=== PATIENT | female | born 1955 | race Caucasian/White ===

== ENCOUNTER → 2016-12-31 | Outpatient (CLI) | payer OTHER ==
--- NOTE | 2016-12-31 14:10 | DIAGNOSTIC IMAGING REPORT ---
SOFT TISS HEAD/NECK-THYROID CLINICAL HISTORY: 61 years-old Female with Z83.49 Family history of thyroid [id number] Enlarged thyroidUL. COMPARISON: None available TECHNIQUE: Multiple real time sonographic images of the thyroid were obtained accessing kenney scale appearance and color doppler flow. FINDINGS: MEASUREMENTS: Right lobe: 3.7 x 1.2 x 1.6 cm Left lobe: 4.3 x 0.9 x 1.7 cm Isthmus: 0.13 cm PARENCHYMA: The thyroid parenchymal echotexture is homogeneous. NODULES: There are multiple nodules present within the right lobe of the thyroid. A large circumscribed ovoid wider than tall hypoechoic spongiform-appearing nodule containing nonshadowing echogenic foci suggesting colloid is seen in the superior aspect of the right thyroid measuring 1.6 x 0.8 x 1.0 cm. A hypoechoic circumscribed nodule of the mid right thyroid measures 0.8 x 0.3 x 0.6 cm. A third nodule of the right thyroid demonstrates irregular margins and is hypoechoic, wider than tall measuring 0.7 x 0.6 x 0.5 cm internal echogenic nonshadowing foci within this lesion suggest microcalcifications rather than colloid. There is internal flow within this nodule. 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 IMPRESSION: 1. Multinodular thyroid with largest nodule in the superior aspect of the right thyroid lobe demonstrating nonshadowing echogenic internal foci suggesting colloid rather than microcalcifications measuring up to 1.6 cm. This could be further evaluated with ultrasound-guided FNA. 2. Irregular hypoechoic nodule within the lower pole right thyroid appears to have internal microcalcifications measuring up to 0.7 cm. This lesion should be noted on follow-up exam and according to the [place] [employer], biopsy would be recommended at 1 cm in size. 3. No suspicious left thyroid nodules identified. The above report was generated using voice recognition software. It may contain grammatical, syntax or spelling errors. Electronically signed by: Aleksander Floyd M.D. 12/31/2016 2:08 PM Dictated Date/Time: 12/31/2016 2:02 PM
== END | disposition home or self-care (01) ==
LOC: C.ULTR 13:29
PROVIDERS: ATTEND Nurse Practitioner Adult Health
DX: Z83.49 Family history of other endocrine, nutritional and metabolic diseases (principal); E07.89 Other specified disorders of thyroid; E01.0 Iodine-deficiency related diffuse (endemic) goiter

== ENCOUNTER → 2017-01-06 | Outpatient (CLI) | payer OTHER ==
[2017-01-06 09:38] LABS: BASO % 0.5 %; BASO ABS # 0.02 K/uL (0-0.2); COMPLETE YES; EOS % 3.1 %; HEMATOCRIT 41.2 % (37-47); IG% 0.2 %; LYMPH % 42.3 %; LYMPH ABS # 1.77 K/uL (1.2-3.4); MEAN CELL VOLUME 94.1 fL (80-100); MEAN CORPUSCULAR HEMOGLOBIN 30.6 pg (25-34); MEAN CORPUSCULAR HGB CONC 32.5 g/dl (32-36); MEAN PLATELET VOLUME 9.6 fL (7.4-10.4); MONO % 6.7 %; NEUT % 47.2 %; PLATELET COUNT 250 K/uL (130-400); RED BLOOD COUNT 4.38 M/uL (4.2-5.4); WHITE BLOOD COUNT 4.18 K/uL (4.8-10.8)
[2017-01-06 09:52] LABS: BLOOD UREA NITROGEN 14 mg/dl (7-18); BUN/CREATININE RATIO 21.2 (10-20); CALCIUM 8.4 mg/dl (8.5-10.1); CARBON DIOXIDE 31 mmol/L (21-32); CHLORIDE 107 mmol/L (98-107); CREATININE 0.66 mg/dl (0.60-1.20); GLUCOSE 87 mg/dl (70-99); POTASSIUM 4.2 mmol/L (3.5-5.1); SODIUM 141 mmol/L (136-145)
[2017-01-06 10:03] LABS: CHOLESTEROL 174 mg/dl (0-200); CHOLESTEROL/HDL RATIO 3.3; HDL CHOLESTEROL 53 mg/dl; LDL CHOLESTEROL CALCULATED 93 mg/dl; TRIGLYCERIDES 139 mg/dl (0-150); VERY LOW DENSITY LIPOPROT CALC 28 mg/dl
== END | disposition home or self-care (01) ==
LOC: C.LAB1850 06:58
PROVIDERS: ATTEND Nurse Practitioner Adult Health
DX: R53.83 Other fatigue (principal); Z13.220 Encounter for screening for lipoid disorders

== ENCOUNTER → 2017-01-12 | Outpatient (CLI) | payer OTHER ==
--- NOTE | 2017-01-12 11:19 | Discharge Instructions ---
Discharge Instructions Procedure Procedure Date: Jan 12, 2017. Reason for visit: Thyroid Nodule. Discharge Discharge Date: Jan 12, 2017. Discharge Diagnosis: s/p thyroid nodule FNA Instructions Activity Recommendations: No limitations Return to School/Work: no limitations Recommended Home Diet: No Limitations Provider Instructions: ACTIVITY RECOMMENDATIONS: * Rest today. * Resume regular activity in one day. MEDICATIONS: * May take Tylenol or Ibuprofen as needed for pain. DIET: * Resume previous diet. SPECIAL CARE INSTRUCTIONS: Call your doctor if: * Temperature above 101 degrees F. * Pain not relieved by pain medicine ordered. * Increased drainage or redness from incision. * Notify your doctor with any questions or concerns. Call your doctor or go to the nearest Emergency Department if you experience: * Increased chest pain or shortness of breath. FOLLOW UP VISIT: Follow-up with Referring Physician as scheduled. Geni Fajardo Recommendations: Call your doctor if: * Temperature above 101 degrees * Pain not relieved by pain medicine ordered * There is increased drainage or redness from any incision * You have any unanswered questions or concerns. Your Doctors Instructions noted above were prepared by provider Edwin Avalos. Patient Signature Section: Patient Instructions Signature Page Amrita Rios Patient (or Guardian) Signature/Date: I have read and understand the instructions given to me by my caregivers. Caregiver/RN/Doctor Signature/Date: The above-named patient and/or guardian has received patient instructions on this date. + Original Patient Signature Page (only) stays with chart. Please make copy for patient.
--- NOTE | 2017-01-12 11:51 | DIAGNOSTIC IMAGING REPORT ---
ULTRASOUND GUIDED FINE NEEDLE ASPIRATION OF RIGHT LOBE THYROID NODULE CLINICAL HISTORY: Thyroid nodule. COMPARISON STUDY: Thyroid ultrasound December 31, 2016. PROCEDURE: The procedure, risks and benefits were discussed with the patient. The patient agreed to the procedure and informed written consent was obtained. The procedure was performed by Dr. Avalos. The 1.6 cm right lobe thyroid nodule shown on prior ultrasound was targeted. Skin of the neck was prepped and draped in sterile fashion and local anesthesia was achieved with 1% lidocaine. Under direct ultrasound guidance, 3 25-gauge fine needle aspirations of the 1.6 cm right lobe thyroid nodule were performed. Samples were deemed preliminarily adequate by pathology. The patient tolerated the procedure well and no immediate complications were evident. IMPRESSION: Ultrasound guided fine needle aspiration of 1.6 cm right lobe thyroid nodule. Electronically signed by: Edwin Avalos M.D. 01/12/2017 11:50 AM Dictated Date/Time: 01/12/2017 11:48 AM
== END | disposition home or self-care (01) ==
LOC: C.ULTR 10:43
PROVIDERS: ATTEND Nurse Practitioner Adult Health
DX: E04.2 Nontoxic multinodular goiter (principal)

== ENCOUNTER → 2017-02-24 | Outpatient (CLI) | payer OTHER ==
[2017-02-24 10:04] LABS: CHOLESTEROL/HDL RATIO 3.2; THYROID STIMULATING HORMONE 3.63 uIu/ml (0.300-4.500)
== END | disposition home or self-care (01) ==
LOC: C.LAB1850 07:16
PROVIDERS: ATTEND Nurse Practitioner Adult Health
DX: Z00.00 Encounter for general adult medical examination without abnormal findings (principal); R93.8 Abnormal findings on diagnostic imaging of other specified body structures; E04.2 Nontoxic multinodular goiter; R94.6 Abnormal results of thyroid function studies; Z13.220 Encounter for screening for lipoid disorders

== ENCOUNTER → 2017-04-06 | Outpatient (CLI) | payer OTHER ==
--- NOTE | 2017-04-07 07:43 | MAMMOGRAPHY REPORT ---
UNILATERAL RIGHT DIGITAL DIAGNOSTIC MAMMOGRAM AND TARGETED BILATERAL ULTRASOUND: 04/06/2017 CLINICAL HISTORY: 61-year-old woman called back from screening mammography for new right breast micro calcifications and possible distortion. The patient reports her right nipple has always been differe nt in appearance compared to the left after she nursed her children 25 years ago. She reports more r ecently an asymmetric area of puckering in the inferior right breast comparing to the left. TECHNIQUE: Spot magnification right CC and ML views were obtained. COMPARISON: Comparison is made to exams dated: 03/24/2017 mammogram - [facility], 07/27/2012 mammogram, 07/12/2012 mammogram, and 09/18/2009 mammogram. BREAST COMPOSITION: The tissue of the right breast is heterogeneously dense, which may obscure small masses. FINDINGS: The spot magnification views of the right breast demonstrate new segmental pleomorphic massiel rocalcifications throughout the right upper outer quadrant, extending over approximately 7.0 x 5.5 x 2.9 cm. These were not present on the prior 2012 mammograms. There are suspicious for DCIS and defi nitive characterization with a stereotactic biopsy is recommended. The possible architectural distortion in the right breast is most prominent in the retroareolar aspec t of the breast and therefore additional evaluation with ultrasound was performed. Targeted ultrasou nd performed in the right breast with particular attention to the retroareolar breast demonstrates il l-defined hypoechoic shadowing in the retroareolar breast. Possible calcifications are seen in the 1 0:00 axis, 6 cm from the nipple, likely corresponding to the pleomorphic microcalcifications seen tremayne mographically. No focal discrete targetable area to correlate with the distortion is seen on ultraso und, therefore would prefer tomosynthesis guided biopsy in the retroareolar or slightly medial right breast for definitive characterization. The contralateral left breast was also evaluated with ultrasound for comparison purposes and there ar e less hypoechoic areas of shadowing. The only questionable area of possible distortion is seen in t he 3:00 periareolar left breast. We will await pathology results from the right breast biopsies and may consider breast MRI to assess the left breast further. IMPRESSION: ACR BI-RADS CATEGORY 5: HIGHLY SUGGESTIVE OF MALIGNANCY, TARGETED ULTRASOUND ACR BI-RADS CATEGORY 5: HIGHLY SUGGESTIVE OF MALIGNANCY 1. Right breast stereotactic guided biopsy x 2 is recommended. The first stereotactic biopsy should be performed of the segmental pleomorphic microcalcifications, with attempt at biopsying the calcifi cations in the most lateral and superior position. The second stereotactic biopsy should be performe d with tomosynthesis guidance to target the distortion in the retroareolar aspect of the breast. The distortion appears to extend slightly medial and slightly inferior to the nipple and an attempt shou ld be made to target the most medial and inferior aspect of distortion to properly assess extent of d isease. 2. Ultrasound of the right axilla was not performed during this appointment and should be performed either before or after the right breast stereotactic biopsies. These results and recommendations were discussed with the patient at the time of the exam. She tenta tively scheduled the right breast biopsies prior to leaving our department. Approximately 10% of breast cancers are not detected with mammography. A negative mammographic report should not delay biopsy if a clinically suggestive mass is present. Alycia Plasencia M.D. ay/:04/06/2017 15:12:19 Center Manager: Ana Cristina SOLIS(R)(M), [facility] letter sent: Abnormal 4/5 BI-RADS Code: ACR BI-RADS Category 5: Highly Suggestive Of Malignancy Ultrasound BI-RADS: ACR BI-RAD S Category 5: Highly Suggestive Of Malignancy
== END | disposition home or self-care (01) ==
LOC: C.MAMM 14:13
PROVIDERS: ATTEND Nurse Practitioner Adult Health
DX: R92.0 Mammographic microcalcification found on diagnostic imaging of breast (principal); N64.9 Disorder of breast, unspecified

== ENCOUNTER → 2017-04-13 | Outpatient (CLI) | payer OTHER ==
--- NOTE | 2017-04-13 09:53 | Discharge Instructions ---
Discharge Instructions Procedure Procedure Date: Apr 13, 2017. Reason for visit: Bx Ruq Calc; Distortion Retroareolar Breast. Discharge Discharge Date: Apr 13, 2017. Discharge Diagnosis: status post breast biopsies Instructions Activity Recommendations: Additional Limitations (see below) Return to School/Work: no limitations Recommended Home Diet: No Limitations Provider Instructions: ACTIVITY RECOMMENDATIONS: * No lifting, pushing, pulling or exercising the affected side for three days. RETURN TO SCHOOL/WORK: * You may return to work/school after the procedure, but do not perform any strenuous activities for 24 to 48 hours. MEDICATIONS: * Tylenol (two 325 mg) every four to six hours if needed for mild pain (if not allergic to Tylenol). DIET: * Resume previous diet. SPECIAL CARE INSTRUCTIONS: * Keep biopsy site dry for 24 hours. May shower after 24 hours, but do not soak (bathe) incision. * May remove Tegaderm (plastic patch) tomorrow AFTER showering. * Leave the steri-strips on for one week. Allow the steri-strips to fall off by themselves. If not off after one week, you may remove them. You may place a Bandaid crosswise over the strips, if desired. * Apply ice 10 minutes on and 10 minutes off as needed. * Wear a bra at bedtime to sleep more comfortably for 2-3 days. * Your referring physician should have the results after approximately 5 to 7 business days. * Call for unusual bleeding, fever, drainage, etc or if you have any questions call during normal business hours or after hours call Dr Galindo, [phone]. FOLLOW UP VISIT: Follow-up with Referring Physician as scheduled. Geni Fajardo Recommendations: Call your doctor if: * Temperature above 101 degrees * Pain not relieved by pain medicine ordered * There is increased drainage or redness from any incision * You have any unanswered questions or concerns. Your Doctors Instructions noted above were prepared by provider Cesilia Galindo. Patient Signature Section: Patient Instructions Signature Page Amrita Rios Patient (or Guardian) Signature/Date: I have read and understand the instructions given to me by my caregivers. Caregiver/RN/Doctor Signature/Date: The above-named patient and/or guardian has received patient instructions on this date. + Original Patient Signature Page (only) stays with chart. Please make copy for patient.
--- NOTE | 2017-04-13 14:45 | MAMMOGRAPHY REPORT ---
STEREOTACTIC GUIDED BIOPSY RIGHT BREAST: 04/13/2017 CLINICAL HISTORY: Suspicious architectural distortion in the right retroareolar breast. PATIENT CONSENT: The procedure, risks, benefits, and alternatives of stereotactic biopsy with clip pl acement were discussed with the patient, and verbal and written consent was obtained. A timeout was performed immediately prior to the procedure. PROCEDURE DESCRIPTION: With tomosynthesis stereotactic guidance, aseptic technique, and lidocaine as a local anesthetic (1% lidocaine to anesthetize the skin and 1% lidocaine with epinephrine to anesthe tize the deeper tissues), the architectural distortion in the right retroareolar breast was sampled m ultiple times with a 9-gauge vacuum-assisted biopsy needle ([employer]). The path of approach was c raniocaudal. A specimen radiograph was performed which showed no associated calcifications within th e samples. A metallic marker clip was placed at the biopsy site. This was confirmed on postprocedure mammograms. Direct pressure was applied at the biopsy site and hemostasis was readily achieved. Th e patient tolerated the procedure without complication. She was given wound care instructions. COMPARISON: Comparison is made to exams dated: 04/06/2017 mammogram, 04/06/2017 ultrasound, 03/24/20 17 mammogram - [facility], 07/27/2012 mammogram, 07/12/2012 mammogram, and 09/18/2009 m ammogram. IMPRESSION: STEREOTACTIC GUIDED BIOPSY Tomosynthesis stereotactic guided biopsy of architectural distortion in the right retroareolar breast , with clip placement. The patient will receive pathology results from her referring provider. Cesilia Galindo M.D. ah/:04/13/2017 10:43:46 Supervisor Telephone Answering Service: Alicia SOLIS(Neeta)(M), [facility]
--- NOTE | 2017-04-13 14:45 | MAMMOGRAPHY REPORT ---
STEREOTACTIC GUIDED BIOPSY RIGHT BREAST: 04/13/2017 CLINICAL HISTORY: Highly suspicious calcifications in the right upper outer quadrant and associated a rchitectural distortion in the right retroareolar breast. PATIENT CONSENT: The procedure, risks, benefits, and alternatives of stereotactic biopsy with clip pl acement were discussed with the patient, and verbal and written consent was obtained. A timeout was performed immediately prior to the procedure. PROCEDURE DESCRIPTION: With stereotactic guidance, aseptic technique, and lidocaine as a local anesth etic (1% lidocaine to anesthetize the skin and 1% lidocaine with epinephrine to anesthetize the deepe r tissues), the suspicious calcifications in the right upper outer quadrant were sampled multiple belén es with a 9-gauge vacuum-assisted biopsy needle ([employer] The path of approach was lateral. Th e specimen radiograph demonstrates calcifications to be present in the samples. A metallic marker cl ip (dumbell-shaped) was placed at the biopsy site. This was confirmed on postprocedure mammograms. Direct pressure was applied at the biopsy site and hemostasis was readily achieved. The patient tole rated the procedure without complication. She was given wound care instructions. COMPARISON: Comparison is made to exams dated: 04/13/2017 stereotactic biopsy, 04/06/2017 mammogram, 04/06/2017 ultrasound, and 03/24/2017 mammogram - [facility]. IMPRESSION: STEREOTACTIC GUIDED BIOPSY Stereotactic biopsy of indeterminate calcifications in the right upper outer quadrant, with clip plac ement. The patient will receive pathology results from her referring provider. Cesilia Galindo M.D. ah/:04/13/2017 10:41:31 Reservation Agent: Alicia BAIRD)(M), [facility]
--- NOTE | 2017-04-13 14:46 | MAMMOGRAPHY REPORT ---
ULTRASOUND OF RIGHT AXILLA: 04/13/2017 CLINICAL HISTORY: Highly suspicious findings seen within the right breast during recent diagnostic wo rkup, for which axillary ultrasound was recommended. COMPARISON: Comparison is made to exams dated: 04/13/2017 stereotactic biopsy, 04/13/2017 stereotact ic biopsy, 04/06/2017 mammogram, 04/06/2017 ultrasound, 03/24/2017 mammogram - [facility], and 07/27/2012 mammogram. TECHNIQUE: Targeted ultrasound of the right axilla was performed. FINDINGS: Targeted ultrasound was performed of the right axilla. There are multiple morphologically normal right axillary lymph nodes, which are normal oval in shape and contain normal echogenic fatty rosana and the cortices are of normal thickness. No morphologically abnormal right axillary lymph nod es are seen. IMPRESSION: ACR BI-RADS CATEGORY 2: BENIGN No evidence of right axillary adenopathy. The patient was verbally notified of the results. Cesilia Galindo M.D. ah/:04/13/2017 10:18:20 Director Game: Alicia SOLIS(Neeta)(M), [facility] BI-RADS Code: ACR BI-RADS Category 2: Benign
--- NOTE | 2017-04-13 14:47 | MAMMOGRAPHY REPORT ---
UNILATERAL RIGHT DIGITAL DIAGNOSTIC MAMMOGRAM TOMOSYNTHESIS: 04/13/2017 CLINICAL HISTORY: Status post stereotactic biopsy of the right breast 2. TECHNIQUE: Breast tomosynthesis in addition to standard 2D mammography was performed. Postprocedura l right CC and ML tomosynthesis images and right XCCL 2-D view were obtained. COMPARISON: Comparison is made to exams dated: 04/13/2017 stereotactic biopsy, 04/06/2017 mammogram, 04/06/2017 ultrasound, 03/24/2017 mammogram - [facility], and 07/27/2012 mammogram. BREAST COMPOSITION: The tissue of the right breast is heterogeneously dense, which may obscure small masses. FINDINGS: A new dumbbell-shaped biopsy marker clip is seen at the site of the biopsied calcification s in the right upper outer quadrant far posteriorly and laterally. A new T-shaped biopsy marker clip is seen at the site of the biopsied architectural distortion in the right subareolar breast. The 2 biopsy marker clips are approximately 5.7 cm apart on the cc view and 4.9 cm apart on the ML view. N o significant postbiopsy hematoma is seen. IMPRESSION: POST PROCEDURE IMAGING FOR MARKER PLACEMENT New biopsy marker clips status post right breast stereotactic biopsy 2. Pathology results are pendi ng. Approximately 10% of breast cancers are not detected with mammography. A negative mammographic report should not delay biopsy if a clinically suggestive mass is present. Cesilia Galindo M.D. ah/:04/13/2017 10:39:39 Ship Manager: Alicia SOLIS(Neeta)([place]), [facility] BI-RADS Code: Post Procedure Imaging For Marker Placement
== END | disposition home or self-care (01) ==
LOC: C.MAMM 08:56
PROVIDERS: ATTEND Nurse Practitioner Adult Health
DX: R92.0 Mammographic microcalcification found on diagnostic imaging of breast (principal); N64.9 Disorder of breast, unspecified; C50.911 Malignant neoplasm of unspecified site of right female breast; D05.11 Intraductal carcinoma in situ of right breast

== ENCOUNTER → 2017-05-01 | Outpatient (CLI) | payer OTHER | END | disposition home or self-care (01) | LOC: C.PAPS 17:38 | PROVIDERS: ATTEND Obstetrics & Gynecology | DX: Z01.419 Encounter for gynecological examination (general) (routine) without abnormal findings (principal) ==

== ENCOUNTER 2017-05-21 07:11 | Day surgery (SDC) | payer OTHER ==
[2017-05-11 10:44] VITALS: Ht 167.6 cm; Wt 61.2 kg
--- NOTE | 2017-05-11 11:06 | PAT Medication Instructions ---
Service Date May 11, 2017. Current Home Medication List Ascorbic Acid (Vitamin C), 500 MG PO QAM Cholecalciferol (Vitamin D3), 1 TAB PO QAM Fish Oil ([place]-3), 1 CAP PO QAM Levothyroxine Sodium (Levothyroxine Sodium), 1 TAB PO QAM Lutein-Zeaxanthin (Lutein), 1 CAP PO QAM Lysine (l-Lysine), 1 TAB PO DAILY PRN for COLD SORE Saccharomyces Boulardii (Probiotic), 1 TAB PO QAM Tragacanth (Astragalus Root), 1 TAB PO QAM Turmeric (Curcuma Longa) (Turmeric), 1 TAB PO QAM Medication Instructions For Your Scheduled Surgery - Hold the following medications 10 DAYS prior to surgery: Fish Oil ([place]-3), 1 CAP PO QAM Lutein-Zeaxanthin (Lutein), 1 CAP PO QAM Lysine (l-Lysine), 1 TAB PO DAILY PRN for COLD SORE Tragacanth (Astragalus Root), 1 TAB PO QAM Turmeric (Curcuma Longa) (Turmeric), 1 TAB PO QAM - Hold the following medications the morning of surgery: Saccharomyces Boulardii (Probiotic), 1 TAB PO QAM Ascorbic Acid (Vitamin C), 500 MG PO QAM Cholecalciferol (Vitamin D3), 1 TAB PO QAM - Take the following medications the morning of surgery with a sip of water OTHERWISE NOTHING TO EAT OR DRINK AFTER MIDNIGHT: Levothyroxine Sodium (Levothyroxine Sodium), 1 TAB PO QAM If you have any questions please call us at [phone] or [phone] or [phone]
[2017-05-11 11:34] LABS: BASO % 0.6 %; BASO ABS # 0.02 K/uL (0-0.2); EOS % 1.2 %; EOS ABS # 0.04 K/uL (0-0.5); HEMATOCRIT 39.1 % (37-47); HEMOGLOBIN 12.7 g/dL (12.0-16.0); IG# 0.01 K/uL (0.00-0.02); LYMPH % 48.3 %; MEAN CELL VOLUME 94.9 fL (80-100); MEAN CORPUSCULAR HEMOGLOBIN 30.8 pg (25-34); MEAN CORPUSCULAR HGB CONC 32.5 g/dl (32-36); MEAN PLATELET VOLUME 9.6 fL (7.4-10.4); MONO % 10.6 %; MONO ABS # 0.35 K/uL (0.11-0.59); NEUT ABS # 1.29 K/uL (1.4-6.5); PLATELET COUNT 256 K/uL (130-400); RED CELL DISTRIBUTION WIDTH CV 12.7 % (11.5-14.5); RED CELL DISTRIBUTION WIDTH SD 43.7 fL (36.4-46.3); WHITE BLOOD COUNT 3.31 K/uL (4.8-10.8)
[2017-05-11 12:53] LABS: CALCIUM 8.8 mg/dl (8.5-10.1); CREATININE 0.55 mg/dl (0.60-1.20); POTASSIUM 4.3 mmol/L (3.5-5.1)
[~2017-05-21] VITALS: Ht 167.6 cm; Wt 61.2 kg
[~2017-05-21 07:11] MED LIST: ASCA500 PO; CEFAZOLIN 2000MG IV PUSH 10 ML IV SCH; CHOL1000 PO; LACTATED RINGER'S 1000ML 1,000 ML IV SCH; LEVO25TA5 PO; LUTE15CA PO; LYSI1TAB11 PO; OMEG10007 PO; SACC250C11 PO; TRAGPOW14 PO; TURM1CAP2 PO
[2017-05-21 08:13] VITALS: BP 132/62; PULSE 72; TEMP 36.8; O2SAT 97
[2017-05-21] MEDS ORDERED: ONDANSETRON INJ 2 MG/ML 2 ML VIAL IV PRN ×2 (08:15→12:30)
[2017-05-21] MEDS ORDERED: ATROPINE SULFATE 0.1 MG/ML 5ML SYR IV PRN (08:15)
[2017-05-21] MEDS ORDERED: EpHEDrine SULFATE INJ 50 MG/ML AMP IV PRN (08:15)
[2017-05-21] MEDS ORDERED: FENTANYL CITRATE INJ 50 MCG/1 ML 2 ML VIAL IV PRN (08:15)
[2017-05-21] MEDS ORDERED: CEFAZOLIN SOD 2000MG/15 ML IV PUSH IV ONE (08:25)
--- NOTE | 2017-05-21 08:52 | DIAGNOSTIC IMAGING REPORT ---
LYMPHOSCINTIGRAPHY CLINICAL HISTORY: Right breast cancer. PROCEDURE: Using standard sterile technique, 4 intradermal and one deep injection of 0.5 mCi of Lymphoseek was placed in the right breast. The patient tolerated the procedure well. There were no immediate complications. The patient was subsequently transported to the surgical suite. No imaging was obtained at the referring physician's request. IMPRESSION: Injection of 0.5 mCi of Lymphoseek in the right breast. Electronically signed by: Con Degroot M.D. 05/21/2017 8:51 AM Dictated Date/Time: 05/21/2017 8:51 AM
[2017-05-21] MEDS ORDERED: FENTANYL CITRATE INJ 50 MCG/1 ML 2 ML VIAL ONE ×2 (09:06→11:03)
[2017-05-21] MEDS ORDERED: MIDAZOLAM HCL 1 MG/ML 2ML VIAL ONE (09:06)
--- NOTE | 2017-05-21 09:49 | History & Physical Bridge Note ---
H&P Re-Evaluation Bridge Note: I have examined the patient, reviewed the History & Physical and in the interval since the performance of the History & Physical I have noted the following changes of clinical significance: No changes noted
[2017-05-21] MEDS ORDERED: BUPIVACAINE/EPINEPHRINE 0.5% MPF 1:200,000 30 ML VIAL ONE (10:01)
[2017-05-21] MEDS ORDERED: LIDOCAINE HCL 2% 2 ML VIAL (20MG/ML) ONE (10:23)
[2017-05-21] MEDS ORDERED: DEXAMETHASONE SOD INJ 4 MG/ML VIAL ONE (10:23)
[2017-05-21] MEDS ORDERED: PROPOFOL IV EMULSION 10 MG/ML 20 ML VIAL IV ONE (10:23)
[2017-05-21] MEDS ORDERED: ONDANSETRON INJ 2 MG/ML 2 ML VIAL ONE (10:23)
[2017-05-21] MEDS ORDERED: SODIUM CHLORIDE 0.9% INJ 10 ML VIAL ONE (10:40)
[2017-05-21] MEDS ORDERED: EpHEDrine SULFATE INJ 50 MG/ML AMP ONE (10:40)
[2017-05-21] MEDS ORDERED: SODIUM CHLORIDE 0.9% 1000ML 1,000 ML IV SCH (12:18)
[2017-05-21] MEDS ORDERED: HYDR-5688 PO (12:20)
[2017-05-21] MEDS ORDERED: HYDROCODONE/ACETAMIN 5/325MG TAB PO PRN ×2 (12:30)
--- NOTE | 2017-05-21 12:30 | Discharge Instructions ---
Discharge Instructions Date of Service May 21, 2017. Admission Reason for Admission: Right Breast Dcis Discharge Discharge Diagnosis / Problem: Right Breast DCIS Discharge Goals Goal(s): Decrease discomfort, Improve function, Learn about illness Activity Recommendations Activity Limitations: as noted below Lifting Limitations: no more than 10 pounds Exercise/Sports Limitations: until after follow-up appointment May Resume Sexual Activity: after follow-up appointment Shower/Bathe: tomorrow Driving or Machine Use: resume 1 day after discharge . Instructions / Follow-Up Instructions / Follow-Up Please follow-up at the General Surgery office next , May 28, 2017 at 2:00PM for drain removal with Ольга Albarran PA-C. If you are unable to make this appointment, please call the General Surgery Office at [phone] to reschedule. Your incision was closed with dissolvable sutures and then steri-strips were placed on top. You may shower tomorrow. The steri-strips will fall off themselves. Please call the office with any questions or concerns. Current Hospital Diet Patient's current hospital diet: Discharge Diet Recommended Diet: Regular Diet Procedures Procedures Performed: Right Breast Total Mastectomy with Right [place] Lymph Node Biopsy Pending Studies Studies pending at discharge: yes List of pending studies: Pathology report. Laboratory Results Lipid Panel Test 02/24/17 07:27 Range/Units Triglycerides Level 94 0-150 mg/dl Cholesterol Level 177 0-200 mg/dl HDL Cholesterol 55 mg/dl Cholesterol/HDL Ratio 3.2 LDL Cholesterol, Calculated 103 mg/dl Medical Emergencies . Who to Call and When: Medical Emergencies: If at any time you feel your situation is an emergency, please call 911 immediately. . Non-Emergent Contact Non-Emergency issues call your: Primary Care Provider, Surgeon Call Non-Emergent contact if: temperature is above 101.5, your pain is not controlled, wound has increased drainage, wound has increased redness . "Provider Documentation" section prepared by Ольга Albarran. . VTE Core Measure Inpt VTE Proph given/why not?: SCD's [place] Drug Monitoring Program Search Results: patient reviewed within database, no issues identified
--- NOTE | 2017-05-21 12:48 | [facility] Operative Report ---
Operative Report Operative Date May 21, 2017. Pre-Operative Diagnosis Right Breast Cancer Post-Operative Diagnosis Same as preoperative Procedure(s) Performed Right Breast Total Mastectomy with Right [place] Lymph Node Biopsy Surgeon Dr. Freddy Landa [place] A Driver Surgeon(s) Ольга Benson PA-C Estimated Blood Loss 30ml Findings negative sentinel lymph nodes. normal anatomy Specimens frozen: 1: Right Breast [place] Lymph Node - 775 tissue: A: Right Breast Tissue-short: Superior, Long:Lateral Anesthesia LMA Disposition Recovery Room / PACU Description of Procedure Prior to coming to the operating room the patient had gone to radiology and had been injected with radioisotope in the periareolar region. She was then brought to the preoperative area appropriately marked. She was then taken to the operating room and placed in a supine position with right arm extended. A rolled towel was placed under her scapula to help with exposure. After successful placement of the laryngeal mask airway the entire chest, breast, axilla and right arm were sterilely prepped and draped in usual fashion. We had looked prior to prepping with the neoprobe and marked the area of "hot" sentinel lymph nodes. I also marked the patient after she was prepped with a skin marker. I began by making an incision that could be incorporated with the mastectomy in the right axilla over top of the hot lymph node. We carried this down through the soft tissue using electrocautery. Continuing to use the neoprobe we were able to directly identify the sentinel lymph nodes. We removed 2 nodes using blunt dissection and small amounts electrocautery and sent these to the pathologist. The were the "hot" nodes ex-vivo as well. There was minimal activity with the neoprobe in the axilla after removing these 2 lymph nodes. After we sent these we then made an elliptical incision around the right breast. We used traction countertraction and electrocautery to perform a complete mastectomy. We carried it down to the pectoralis fascia but allowed the fascia to remain. Superiorly we went as high as the clavicle and inferiorly we went down to the inframammary fold. We continued laterally into the axilla to join with our sentinel lymph node biopsy incision. Eventually we were able to perform the mastectomy and a marked it such that 2 short sutures were superior and one long suture was lateral. We controlled any bleeding points using electrocautery. By now the pathologist did call back into the room indicating that the sentinel lymph nodes were negative and therefore complete axillary dissection would not be indicated. After we thoroughly irrigated all the raw surfaces ensure there was no bleeding we placed Laura powder on all the raw surfaces. I placed a 10 flat Robert-Sheldon drain brought out through a separate stab incision in the right axillary region. We did create skin flaps superiorly and inferiorly so that we could create a relatively tension free closure. We used 0 Vicryl for the deep layers 2-0 Vicryl for the mid layers and 4-0 Monocryl for the skin. I sutured the MADHU and the place using 2-0 silk. Benzoin Steri-Strips gauze fluffs and a Surgi-Bra were used to dress the incision the patient was awaken x-rayed and transferred recovery in stable condition My physician's support assistant was present throughout the entire case. She assisted with prepping the patient. She helped with retraction for the sentinel lymph node biopsy as well as for the entire mastectomy. She also helped with wound closure and with dressing placement I attest to the content of the Intraoperative Record and any orders documented therein. Any exceptions are noted below.
--- NOTE | 2017-05-21 13:08 | Anesthesiology Progress Note ---
Anesthesia Post Op Note Date & Time May 21, 2017 at 13:08 Vital Signs Pain Intensity: 0 Vital Signs Past 12 Hours Date Time Temp Pulse Resp B/P (MAP) Pulse Ox O2 Delivery O2 Flow Rate FiO2 05/21/17 12:50 75 15 138/76 94 Room Air 05/21/17 12:40 78 14 140/79 95 Room Air 05/21/17 12:30 86 16 137/74 99 Oxymask 8 05/21/17 12:20 36.1 95 16 133/70 99 Oxymask 8 05/21/17 08:13 36.8 72 16 132/62 (85) 97 Room Air Notes Mental Status: alert / awake / arousable, participated in evaluation Pt Amnestic to Procedure: Yes Nausea / Vomiting: adequately controlled Pain: adequately controlled Airway Patency, RR, SpO2: stable & adequate BP & HR: stable & adequate Hydration State: stable & adequate Anesthetic Complications: no major complications apparent
[2017-05-21 13:20] VITALS: BP 133/71; PULSE 81; TEMP 36.5; O2SAT 95
[2017-05-21 13:50] VITALS: BP 116/65; PULSE 88; TEMP 36.5; O2SAT 95
[2017-05-21 14:20] VITALS: BP 116/71; PULSE 87; TEMP 36.3; O2SAT 93
== END 2017-05-21 15:36 | disposition home or self-care (01) ==
LOC: C.ACU 07:11
PROVIDERS: ATTEND Surgery
DX: C50.411 Malignant neoplasm of upper-outer quadrant of right female breast (principal); E03.9 Hypothyroidism, unspecified; M81.0 Age-related osteoporosis without current pathological fracture; M19.90 Unspecified osteoarthritis, unspecified site; F19.90 Other psychoactive substance use, unspecified, uncomplicated; Z79.899 Other long term (current) drug therapy